=== PATIENT | male | born 1960 | race Caucasian/White ===

== ENCOUNTER 2022-05-01 15:20 | Outpatient (CLI) | payer BC | END 2022-05-01 15:21 | disposition home or self-care (01) | LOC: NAV RAD 15:20 | PROVIDERS: ATTEND Nurse Practitioner Family | DX: R05.3 Chronic cough (principal) | CPT/HCPCS: 71046 ==

== ENCOUNTER 2022-06-06 08:47 | Outpatient (CLI) | payer BC ==
[2022-06-06] MEDS ORDERED: Iopamidol 370 76% 100 ML VIAL ONE (09:00)
== END 2022-06-06 08:48 | disposition home or self-care (01) ==
LOC: NAV CT 08:47
PROVIDERS: ATTEND Otolaryngology
DX: R05.3 Chronic cough (principal)
CPT/HCPCS: 36415; 71260; 82565; Q9967

== ENCOUNTER 2024-12-07 15:42 | Outpatient (CLI) | payer BC | END 2024-12-07 15:43 | disposition home or self-care (01) | LOC: NAV RAD 15:42 | PROVIDERS: ATTEND Nurse Practitioner Family | DX: R60.0 Localized edema (principal); M79.671 Pain in right foot; M79.89 Other specified soft tissue disorders ==